=== PATIENT | male | born 1970 | race Caucasian/White ===

== ENCOUNTER 2017-03-24 12:45 | Emergency (ER) | payer BC ==
[~2017-03-24] VITALS: Ht 177.8 cm; Wt 104.6 kg
[2017-03-24 12:48] VITALS: Ht 177.8 cm; Wt 104.6 kg
== END 2017-03-24 12:59 | disposition expired ==
LOC: ED 12:45
DX: I46.9 Cardiac arrest, cause unspecified (principal); I10 Essential (primary) hypertension; E11.9 Type 2 diabetes mellitus without complications; E78.00 Pure hypercholesterolemia, unspecified; K21.9 Gastro-esophageal reflux disease without esophagitis
CPT/HCPCS: J0171; J7030